=== PATIENT | male | born 1990 | race Two or more races ===

== ENCOUNTER 2021-07-17 20:44 | Emergency (ER) | payer OTHER ==
[~2021-07-17] VITALS: Ht 172.7 cm; Wt 68.2 kg
[2021-07-17 23:42] VITALS: BP 125/75
[2021-07-18] MEDS ORDERED: HydrOXYzine PAMOATE 50 MG CAPSULE PO ONE (01:15)
== END 2021-07-18 01:44 | disposition home or self-care (01) ==
LOC: EMS 20:45
DX: F41.9 Anxiety disorder, unspecified (principal); Z53.21 Procedure and treatment not carried out due to patient leaving prior to being seen by health care provider
CPT/HCPCS: 99283